=== PATIENT | male | born 2000 | race Caucasian/White ===

== ENCOUNTER 2021-08-27 18:14 | Emergency (ER) | payer OTHER ==
[~2021-08-27] VITALS: Ht 167.6 cm; Wt 83.1 kg
[2021-08-27 22:41] LABS: RSV AMPLIFICATION NEGATIVE (NEGATIVE)
[2021-08-27] MEDS ORDERED: ONDANSETRON 4 MG ORAL DISINTEGRATING TAB PO ONE (22:55)
[2021-08-27 23:39] VITALS: BP 127/63
== END 2021-08-27 23:40 | disposition home or self-care (01) ==
LOC: M ED 18:14
DX: B34.9 Viral infection, unspecified (principal); R05.9 Cough, unspecified; J02.9 Acute pharyngitis, unspecified; R19.7 Diarrhea, unspecified
CPT/HCPCS: 87631; 99283; Q0162

== ENCOUNTER 2022-04-30 19:41 | Emergency (ER) | payer OTHER ==
[~2022-04-30] VITALS: Ht 170.2 cm; Wt 87.7 kg
[2022-04-30 19:41] VITALS: BP 135/78
== END 2022-05-01 01:18 | disposition left against medical advice (07) ==
LOC: M ED 19:41
DX: Z53.21 Procedure and treatment not carried out due to patient leaving prior to being seen by health care provider (principal)